=== PATIENT | female | born 1955 | race Caucasian/White ===

== ENCOUNTER → 2025-02-21 | Outpatient (CLI) | payer MEDICARE ==
[2025-02-21 12:08] LABS: INR 0.9 (<1.2); Prothrombin Time 10.1 sec (10.0-12.5)
[2025-02-21 16:52] LABS: Chol/HDL Ratio 4.06 Ratio; LDL Cholesterol,Calculated 165.8 mg/dL (0.0-131.0)
[2025-02-21 16:54] LABS: Basophils # (A) 0.06 X 10*3/uL (0.00-0.10); Basophils % (A) 0.7 %; Eosinophils # (A) 0.16 X 10*3/uL (0.04-0.35); Eosinophils % (A) 1.9 %; HCT 45.2 % (37.2-46.3); HGB 15.1 g/dL (12.0-15.0); Lymphocytes # (A) 2.36 X 10*3/uL (0.90-5.00); Lymphocytes % (A) 28.6 %; MCH 30.7 pg (27.0-32.0); MCHC 33.4 g/dL (32.0-37.0); MCV 91.9 FL (80.0-97.0); Monocytes # (A) 0.55 X 10*3/uL (0.20-1.00); Monocytes % (A) 6.7 %; NRBC Per 100 WBC 0 X 10*3/uL (0.00-0.01); Neutrophils # (A) 5.08 X 10*3/uL (1.80-7.70); Neutrophils % (A) 61.7 %; Platelet Count 287 X 10*3/uL (140-440); RBC 4.92 X 10*6/uL (4.10-5.20); RDW 12.6 % (11.5-14.5); WBC 8.24 X 10*3/uL (4.50-10.00)
[2025-02-21 17:09] LABS: Erythrocyte Sedimentation Rate 35 mm/Hr (0-30)
[2025-02-21 21:18] LABS: Cardiolipin Ab IgG Interp Negative (Negative); Cardiolipin Ab IgM Interp Negative (Negative); Cardiolipin IgA Antibody <2.0 U/mL; Cardiolipin IgM Antibody <1.5 U/mL
[2025-02-22 11:29] LABS: APTT 39 Sec(s) (<43); Dilute Russell Viper Venom 35 Sec(s) (<44)
== END | disposition home or self-care (01) ==
LOC: LABWHC1 11:30
PROVIDERS: ATTEND Psychiatry & Neurology Neurology
DX: I67.9 Cerebrovascular disease, unspecified (principal); E78.5 Hyperlipidemia, unspecified
CPT/HCPCS: 36415; 80061; 83090; 85025; 85610; 85613; 85652; 85730; 86147

== ENCOUNTER → 2025-03-18 | Outpatient (CLI) | payer MEDICARE ==
--- NOTE | 2025-03-20 11:46 | CTL ---
EXAMINATION TYPE: CT Low Dose Lung DATE OF EXAM: 03/18/2025 8:45 AM COMPARISON: None. SCREENING VISIT: Initial CT DIAGNOSTIC QUALITY: Limited, but interpretable CLINICAL INDICATION: Female, 69 years old with history of Z12.2 LUNG CA SCR F17.210 CURRENT SMOKER, c urrent smoker 1 ppd x 50 years hx COPD, Lung cancer screening, History of tobacco use. TECHNIQUE: Low dose computed tomography scan was performed through the chest at 1 mm thick sections a nd reconstructed images in the coronal plane at 1 mm thick sections. Contrast used: mL of , (none if empty) Oral contrast used: (none if empty) CT DLP: 60 mGycm, Automated exposure control for dose reduction was used. CT CTDI: 1.8 mGy, Automated exposure control for dose reduction was used. FINDINGS: LUNG NODULES: Present, detailed below: 1. There is a 0.3 cm nodule at the superior right upper lobe. Series 4 image 69. Series 4 image 69. 2. There is a 0.2 cm nodule periphery left lung. Series 4 image 94. Series 4 image 94. 3. There is a 0.5 centimeter nodule peripheral mediastinal margin. Series 4 image 89. 4. There is a 0.3 cm nodule periphery right upper lobe. Series 4 image 95. 5. There is a 0.4 cm nodule mid posterior right lung. Series 4 image 155. 6. There is a 0.4 cm nodule periphery anterior lateral right midlung. Series 4 image 27. 7. There is a 0.4 cm ill-defined nodule mid right lung. Series 4 image 198 LUNGS: COPD: Severity: None Fibrosis: Severity: None Lymph nodes: None Other findings: None RIGHT PLEURAL SPACE: Effusion: None Calcification: None Thickening: None Pneumothorax: None LEFT PLEURAL SPACE: Effusion: None Calcification: None Thickening: None Pneumothorax: None HEART: Other: Ascending thoracic aorta at the level the main pulmonary artery measures 3.6 cm. The main pul monary artery at the bifurcation measures 2.3 cm. Heart Size: Normal Coronary calcification: No significant coronary artery calcifications. Pericardial effusion: None OTHER FINDINGS: Upper abdomen: Normal Bony thorax: Normal Supraclavicular region: Normal IMPRESSION: 1. Small scattered nodules. FOLLOW UP CT CHEST RECOMMENDATION: Follow-up limited CT chest one year CT LUNG RAD: Lung-Rad 2 Benign Appearance or Behavior [facility], Workstation: [id number], 03/20/2025 11:44 AM
== END | disposition home or self-care (01) ==
LOC: RADCTMAIN 07:47
PROVIDERS: ATTEND Family Medicine
DX: Z12.2 Encounter for screening for malignant neoplasm of respiratory organs (principal); F17.210 Nicotine dependence, cigarettes, uncomplicated; R91.8 Other nonspecific abnormal finding of lung field
CPT/HCPCS: 71271

== ENCOUNTER → 2025-03-18 | Outpatient (CLI) | payer MEDICARE ==
--- NOTE | 2025-03-18 08:23 | MM ---
Reason for Exam: Screening (asymptomatic). Last mammogram was performed 2 year(s) and 9 month(s) ago. Risk Values: Analilia 5 year model risk: 1.1%. NCI Lifetime model risk: 3.7%. Tissue Density: The breasts are heterogeneously dense, which may obscure small masses. Findings: Analyzed By CAD. There is no suspicious group of microcalcifications or new suspicious mass in either breast. Overall Assessment: Benign, BI-RAD 2 Management: Screening Mammogram of both breasts in 1 year. . Patient should continue monthly self-breast exams. A clinical breast exam by your physician is recommended on an annual basis. This exam should not preclude additional follow-up of suspicious palpable abnormalities. Note on Analilia scores and lifetime risk: 1. A Analilia score greater than 3% is considered moderate risk. If this is the case, consider specialist referral to assess eligibility for a risk reducing agent. 2. If overall lifetime risk for the development of breast cancer is 20% or higher, the patient may qualify for future screening with alternating mammogram and breast MRI. [facility], , 03/18/2025 8:20 AM. Electronically signed and approved by: Elie Clifford M.D. Radiologis
== END | disposition home or self-care (01) ==
LOC: RADMAMWWP 07:49
PROVIDERS: ATTEND Family Medicine
DX: Z12.31 Encounter for screening mammogram for malignant neoplasm of breast (principal); R92.333 Mammographic heterogeneous density, bilateral breasts
CPT/HCPCS: 77063; 77067